=== PATIENT | female | born 1985 | race Caucasian/White ===

== ENCOUNTER 2016-10-18 21:50 | Emergency (ER) | payer OTHER ==
[2016-10-18] MEDS ORDERED: DEXAMETHASONE 10 MG/ML VIAL PO STA (23:30)
[2016-10-18] MEDS ORDERED: CHERRY SYRUP 10 ML UDC PO ONE (23:31)
[2016-10-18] MEDS ORDERED: DEXAMETHASONE 10 MG/ML VIAL ONE (23:31)
== END 2016-10-18 23:36 | disposition home or self-care (01) ==
DX: J02.9 Acute pharyngitis, unspecified (principal); M79.1 Myalgia
CPT/HCPCS: 81001; 87070; 87430; 99283; A9270